=== PATIENT | male | born 1950 | race Caucasian/White ===

== ENCOUNTER → 2022-02-16 | Outpatient (CLI) | payer MEDICARE, BC | END | disposition home or self-care (01) | LOC: LAB SHORT 11:14 | DX: C44.619 Basal cell carcinoma of skin of left upper limb, including shoulder (principal) | CPT/HCPCS: 88305 ==

== ENCOUNTER 2024-05-31 06:31 | Inpatient (IN) | payer MEDICARE, BC ==
[~2024-05-31] VITALS: Ht 182.9 cm; Wt 101.7 kg
[~2024-05-31 06:31] MED LIST: ERLEADA240 MG PO; LEUPROLIDE; TAMS.4ER
[2024-05-31] MEDS ORDERED: Ketorolac Tromethamine 15mg Vial IV ONE (07:30)
[2024-05-31] MEDS ORDERED: Morphine Sulfate 4 MG/1 ML Injection IV ONE ×2 (07:30→12:55)
[2024-05-31 08:31] LABS: Bun/Creatinine Ratio 14.2 (12.0-20.0); Creatinine, Blood 0.99 mg/dL (0.60-1.20); Potassium, Blood 4.1 mmol/L (3.5-5.5)
[2024-05-31 08:38] LABS: BASOPHILS ABSOLUTE AUTO 0.05 K/mm3 (0.00-0.23); BASOPHILS PERCENT AUTO 1 % (0-2); EOSINOPHILS ABSOLUTE AUTO 0.25 K/mm3 (0.00-0.68); EOSINOPHILS PERCENT AUTO 3 % (0-6); Hematocrit 43.6 % (37.0-53.0); Hemoglobin 14.9 g/dL (13.5-17.5); IMMATURE GRAN ABSOLUTE AUTO 0.03 K/mm3 (0.00-0.10); IMMATURE GRAN PERCENT AUTO 0 % (0-1); LYMPHOCYTES ABSOLUTE AUTO 2.11 K/mm3 (0.84-5.20); LYMPHOCYTES PERCENT AUTO 21 % (21-46); MONOCYTES ABSOLUTE AUTO 0.79 K/mm3 (0.16-1.47); MONOCYTES PERCENT AUTO 8 % (4-13); Mean Corpuscular HGB 32.9 pg (26.0-34.0); Mean Corpuscular HGB Conc 34.2 g/dL (31.5-36.5); Mean Corpuscular Volume 96 fL (80-100); Mean Platelet Volume 10.1 fL (9.1-12.4); NEUTROPHILS ABSOLUTE AUTO 6.96 K/mm3 (1.96-9.15); NEUTROPHILS PERCENT AUTO 68 % (41-73); Platelet Count 219 K/mm3 (150-400); RDW Coefficient Variation 12.4 % (11.7-14.2); Red Blood Cell Count 4.53 M/mm3 (4.30-5.90); White Blood Cell Count 10.19 K/mm3 (4.00-11.30)
[2024-05-31] MEDS ORDERED: Vancomycin HCL 2,000 MG in NS 520 ML IV ONE (08:50)
[2024-05-31] MEDS ORDERED: CefTRIAXone Sodium 2,000 MG in NS 100 ML IV ONE (08:50)
[2024-05-31 08:59] LABS: Influenza A, PCR NEGATIVE (NEGATIVE); Influenza B, PCR NEGATIVE (NEGATIVE); Resp Syncytial Virus, PCR NEGATIVE (NEGATIVE); SARS-Cov-2 (COVID-19) PCR, MMC NEGATIVE (NEGATIVE)
[2024-05-31] MEDS ORDERED: Dexamethasone Sod Phos 10 MG/ML 1ML VIAL IV ONE (09:00)
[2024-05-31] MEDS ORDERED: Ampicillin Sod/Sulbactam Sod 3 GM in NS 100 ML IV ONE (09:00)
[2024-05-31] MEDS ORDERED: Oxymetazoline 0.05% Nasal Relief Spray 15mL BTL TOP ONE (09:40)
[2024-05-31] MEDS ORDERED: FLU VACC TS2024-25(6MOS UP)/PF 45 MCG/0.5 ML SYRINGE IM PRN (11:10)
[2024-05-31] MEDS ORDERED: Ondansetron HCl 2 MG / ML 2ML Vial IV PRN (11:10)
[2024-05-31] MEDS ORDERED: Ampicillin Sod/Sulbactam Sod 3 GM in NS 100 ML IV SCH (12:00)
[2024-05-31 13:59] VITALS: BP 134/68
[2024-05-31] MEDS ORDERED: Ketorolac Tromethamine 30mg Vial IV PRN (14:00)
[2024-05-31] MEDS ORDERED: LUPRON DEPOT7.5 M1 (14:09)
[2024-05-31 15:13] VITALS: BP 117/65
--- NOTE | 2024-05-31 18:03 | NUR ---
SHIFT SUMMARY THE PT IS A NEW ADMIT THIS AFTERNOON. HE IS A&OX4, IND IN THE ROOM, AND CAN MAKE HIS NEEDS KNOWN. 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 HE STATED HE FORGOT TO TELL STAFF. HE HAS HAD ONE RUN THIS MORNING THAT DID NOT SUSTAIN . PT ASYMPTOMATIC. HE IS ON RA AND DENIES SOB. HE DOES HAVE PAIN TAKING DEEP BREATHS AND SWALLOWING. THE PT SHOWED VERBAL UNDERSTANDING OF THE NEED TO LET STAFF KNOW IF HE FEELS SOB, OR IF HE FEELS LIKE HIS THROAT IS SWELLING/GETTING TIGHTER. CONT. PULSE OX SET UP. DR. SAXENA WAS CONSULTED AND SAW THE PT WHILE IN THE ER. THE PT;S IS AT BEDSIDE AND UPDATED ON CARE. NO ACUTE EVENTS. SEE NOTES FOR ANY UPDATES.
[2024-05-31] MEDS ORDERED: NS 250 ML IV PRN (20:40)
[2024-05-31 20:45] VITALS: BP 124/73
[2024-06-01 03:46] VITALS: BP 108/65
[2024-06-01 04:27] LABS: BASOPHILS ABSOLUTE AUTO 0.02 K/mm3 (0.00-0.23); BASOPHILS PERCENT AUTO 0 % (0-2); EOSINOPHILS ABSOLUTE AUTO 0.14 K/mm3 (0.00-0.68); EOSINOPHILS PERCENT AUTO 1 % (0-6); Hematocrit 37.6 % (37.0-53.0); Hemoglobin 12.7 g/dL (13.5-17.5); IMMATURE GRAN ABSOLUTE AUTO 0.04 K/mm3 (0.00-0.10); IMMATURE GRAN PERCENT AUTO 0 % (0-1); LYMPHOCYTES ABSOLUTE AUTO 1.52 K/mm3 (0.84-5.20); LYMPHOCYTES PERCENT AUTO 15 % (21-46); MONOCYTES ABSOLUTE AUTO 0.74 K/mm3 (0.16-1.47); MONOCYTES PERCENT AUTO 7 % (4-13); Mean Corpuscular HGB 32.3 pg (26.0-34.0); Mean Corpuscular HGB Conc 33.8 g/dL (31.5-36.5); Mean Corpuscular Volume 96 fL (80-100); Mean Platelet Volume 10.4 fL (9.1-12.4); NEUTROPHILS ABSOLUTE AUTO 7.73 K/mm3 (1.96-9.15); NEUTROPHILS PERCENT AUTO 76 % (41-73); Platelet Count 167 K/mm3 (150-400); RDW Coefficient Variation 12.5 % (11.7-14.2); RDW Standard Deviation 43.6 fL (35.1-46.3); Red Blood Cell Count 3.93 M/mm3 (4.30-5.90); White Blood Cell Count 10.19 K/mm3 (4.00-11.30)
[2024-06-01 04:44] LABS: Bun/Creatinine Ratio 20.4 (12.0-20.0); Calcium, Blood 8.5 mg/dL (8.5-10.1); Creatinine, Blood 1.03 mg/dL (0.60-1.20); Potassium, Blood 3.6 mmol/L (3.5-5.5)
--- NOTE | 2024-06-01 05:56 | NUR ---
SHIFT SUMMARY NOC PT A/O X 4. PLEASANT AND COOPERATIVE WITH CARE. VSS. PAIN FROM ACUTE EPIGLOTITIS BEING MANAGED PER EMAR WITH IV PAIN RX. PT HAS C/O OF CONTIOUS DRAINAGE THAT HAS PERSISTED FOR THE PAST FEW DAYS. PT RECEIVING UNASYN Q6H AND DECADRON DAILY. ON CONTINOUS CARDIAC MONITORING IN 60'S. PT CURRENTLY RESTING WITH BED IN LOWEST POSITION, AND CALL LIGHT WITHIN REACH.
[2024-06-01 07:23] VITALS: BP 115/65
[2024-06-01] MEDS ORDERED: Dexamethasone Sod Phos 10 MG/ML 1ML VIAL IV SCH (09:00)
[2024-06-01] MEDS ORDERED: Tamsulosin HCl 0.4 MG Cap PO SCH (09:00)
[2024-06-01] MEDS ORDERED: Enoxaparin 40 MG/0.4 ML SYR SC SCH (09:00)
[2024-06-01] MEDS ORDERED: APALUTAMIDE 240 MG PO SCH (09:00)
[2024-06-01 11:51] VITALS: BP 133/78
[2024-06-01 15:07] VITALS: BP 114/66
--- NOTE | 2024-06-01 17:05 | NUR ---
SHIFT SUMMARY THE PT REMAINS A&OX4, IND IN THE ROOM, AND CAN MAKE HIS NEEDS KNOWN. 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 ONE EPISODE THIS SHIFT. PT ASYMPTOMATIC. HE REMAINS ON RA AND DENIES SOB. THE PTS PAIN WHEN TAKING DEEP BREATHS HAS IMPROVED.. DR. SAXENA SAW THE PT THIS MORNING AND ORDERED THE PT S LAST DOSE OF DECADRON FOR THIS MORNING. HE WANTS THE PT ON IV ABX FOR 48 HR S, THEN ON ORAL ABX FOR 24 HRS. POSSIBLE DISCHARGE AFTER. SPEECH THERAPY SAW THE PT AND UPGRADED THE PT TO A SOFT BITE SIZED DIET STARTING AT DINNER. THE PT STATES HE IS FEELING MUCH BETTER TODAY THEN YESTERDAY. PAIN MEDICATIONS HAVE NOT BEEN NEED THE PT STATES HIS PAIN HAS BEEN ABSENT. IS AT BEDSIDE AND UPDATED ON CARE. NO ACUTE EVENTS. SEE NOTES FOR ANY UPDATES.
[2024-06-01 19:17] VITALS: BP 126/73
[2024-06-01 23:25] VITALS: BP 112/69
[2024-06-02 03:58] VITALS: BP 106/65
[2024-06-02 04:38] LABS: BASOPHILS ABSOLUTE AUTO 0.03 K/mm3 (0.00-0.23); BASOPHILS PERCENT AUTO 0 % (0-2); EOSINOPHILS ABSOLUTE AUTO 0.13 K/mm3 (0.00-0.68); EOSINOPHILS PERCENT AUTO 2 % (0-6); Hematocrit 35.5 % (37.0-53.0); Hemoglobin 12.1 g/dL (13.5-17.5); IMMATURE GRAN ABSOLUTE AUTO 0.03 K/mm3 (0.00-0.10); IMMATURE GRAN PERCENT AUTO 0 % (0-1); LYMPHOCYTES ABSOLUTE AUTO 1.58 K/mm3 (0.84-5.20); LYMPHOCYTES PERCENT AUTO 20 % (21-46); MONOCYTES ABSOLUTE AUTO 0.68 K/mm3 (0.16-1.47); MONOCYTES PERCENT AUTO 9 % (4-13); Mean Corpuscular HGB 32.9 pg (26.0-34.0); Mean Corpuscular HGB Conc 34.1 g/dL (31.5-36.5); Mean Corpuscular Volume 97 fL (80-100); Mean Platelet Volume 10.1 fL (9.1-12.4); NEUTROPHILS ABSOLUTE AUTO 5.29 K/mm3 (1.96-9.15); NEUTROPHILS PERCENT AUTO 68 % (41-73); Platelet Count 160 K/mm3 (150-400); RDW Coefficient Variation 12.2 % (11.7-14.2); RDW Standard Deviation 43.5 fL (35.1-46.3); Red Blood Cell Count 3.68 M/mm3 (4.30-5.90); White Blood Cell Count 7.74 K/mm3 (4.00-11.30)
[2024-06-02 05:10] LABS: Bun/Creatinine Ratio 21.1 (12.0-20.0); Calcium, Blood 8.6 mg/dL (8.5-10.1); Creatinine, Blood 1.09 mg/dL (0.60-1.20); Free Thyroxine 0.89 ng/dL (0.70-1.60); Potassium, Blood 3.4 mmol/L (3.5-5.5); Thyroid Stimulating Hormone 1.67 uIU/mL (0.360-4.800); Triiodothyronine, Free 1.97 pg/mL (2.18-3.98)
--- NOTE | 2024-06-02 05:19 | NUR ---
SHIFT SUMMARY NOC PT A/O X 4. PLEASANT AND COOPERATIVE WITH CARE. VSS. NO ACUTE CHANGES TO REPORT. PT GIVEN ONE DOSE OF TORADOL FOR R SIDED THROAT PAIN 09/04. CONTINOUS DRAINAGE FROM PRIOR RADIATION THERAPY FRO PROSTAT CX TX. ON CONTINOUS CARDIAC MONITORING IN 60'S. PT PLAN IS 48 HR IV ABX, 24 HR PO ABX, THEN FOLLOW UP WITH PCP OR DR ODESSA GROSS FOR L THYROID LOBE NODULE FOUND ON CT SCAN. PT CURRENTLY RESTING WITH BED IN LOWEST POSITION, AND CALL LIGHT WITHIN REACH.
[2024-06-02 07:40] VITALS: BP 127/70
[2024-06-02] MEDS ORDERED: Psyllium 1 EA Pack PO SCH (09:00)
[2024-06-02] MEDS ORDERED: Potassium Chloride 20 MEQ TabCR PO ONE (09:20)
--- NOTE | 2024-06-02 11:33 | NUR ---
Spiritual Care Visit. Pt. is awake in bed and welcomes my visit. Pt. is pleasant and spouse is at bedside. Failtated a life review and considered matters of radha and belief. pt. and spouse display evidence of a devout and committed radha. Prayed with the family and answered some community history questions. Family verbalized gratitude for the spiritual care visit.
[2024-06-02 12:10] VITALS: BP 116/50
[2024-06-02 15:55] VITALS: BP 116/65
--- NOTE | 2024-06-02 16:52 | NUR ---
SHIFT SUMMARY NO ACUTE CHANGES THIS SHIFT. A&OX4. VSS. PT INDEPENDENT IN ROOM. WALKED AROUND UNIT THIS AFTERNOON. C/O OF THROAT PAIN, MEDICATED W/ TORADOL X1. PT STATES HE NOTICES OF PATTERN OF THROAT IRRITAION POST FOOD CONSUMPTION, BUT DOESNT LAST LONG. SPEECH IN ROOM TO ASSESS, SIGNED OFF PT'S CASE. IN ROOM THIS AM. REQUESTING DR LEON TO GET REFUND FROM MISSED AIRLINE FLIGHT DUE TO HOSPITAL STAY. MD EAGLE IN ROOM, WROTE PT DR LEON, GIVEN TO . ABX INFUSED PER EMAR. CALL LIGHT IN REACH.
[2024-06-02 20:14] VITALS: BP 130/73
[2024-06-02] MEDS ORDERED: Lactobacil 2-S.Thermo-Bifido 1 1 Cap PO SCH (21:00)
[2024-06-02 23:52] VITALS: BP 118/69
--- NOTE | 2024-06-03 02:17 | NUR ---
SHIFT SUMMARY ASSUMED CARE OF PT AT 1900. PT A&O4, COOPERATIVE IN CARE AND ABLE TO EXPRESS NEEDS APPROPRIATELY. PT DENIES CP AND SOB. HR DROPPED LOW 43, NONSUSTAINING. ALL OTHER VSS AND PT REMAINED ON RA. PT REPORTED PAIN AT THE BEGINING OF SHIFT AND PRN ANALGESICS GIVEN, NO OTHER PAIN REPORTED SINCE. PT ABLE TO AMBULATE TO THE RR INDEPENDENTLY. BED IN LOWEST POSITION AND CALL LIGHT WITHIN REACH.
[2024-06-03 04:08] LABS: BASOPHILS ABSOLUTE AUTO 0.04 K/mm3 (0.00-0.23); BASOPHILS PERCENT AUTO 1 % (0-2); EOSINOPHILS ABSOLUTE AUTO 0.24 K/mm3 (0.00-0.68); EOSINOPHILS PERCENT AUTO 4 % (0-6); Hematocrit 34.7 % (37.0-53.0); Hemoglobin 11.8 g/dL (13.5-17.5); IMMATURE GRAN ABSOLUTE AUTO 0.02 K/mm3 (0.00-0.10); IMMATURE GRAN PERCENT AUTO 0 % (0-1); LYMPHOCYTES ABSOLUTE AUTO 1.48 K/mm3 (0.84-5.20); LYMPHOCYTES PERCENT AUTO 27 % (21-46); MONOCYTES ABSOLUTE AUTO 0.53 K/mm3 (0.16-1.47); MONOCYTES PERCENT AUTO 10 % (4-13); Mean Corpuscular HGB 32.7 pg (26.0-34.0); Mean Corpuscular Volume 96 fL (80-100); Mean Platelet Volume 10.5 fL (9.1-12.4); NEUTROPHILS PERCENT AUTO 57 % (41-73); Platelet Count 167 K/mm3 (150-400); RDW Coefficient Variation 12.1 % (11.7-14.2); RDW Standard Deviation 42.4 fL (35.1-46.3); Red Blood Cell Count 3.61 M/mm3 (4.30-5.90); White Blood Cell Count 5.41 K/mm3 (4.00-11.30)
[2024-06-03 04:29] LABS: Bun/Creatinine Ratio 18.8 (12.0-20.0); Calcium, Blood 8.2 mg/dL (8.5-10.1); Creatinine, Blood 1.12 mg/dL (0.60-1.20); Potassium, Blood 3.8 mmol/L (3.5-5.5)
[2024-06-03 05:05] VITALS: BP 118/73
[2024-06-03 08:05] VITALS: BP 142/89
--- NOTE | 2024-06-03 08:58 | NUR ---
UPDATE PT AWAKE AND ALERT SITTIN UP ON EDGE OF BED THIS AM EATING BREAKFAST. PT DENIES ANY THROAT PAIN THIS AM. PT REPORTS SWALLOWING FEELS "BACK TO NORMAL". O2 SATS >90% ON RA. WILL CONTINUE PLAN OF CARE
[2024-06-03] MEDS ORDERED: VISBIOME 112.51 EACH PO (11:19)
[2024-06-03] MEDS ORDERED: AMOCLA875 PO (11:19)
--- NOTE | 2024-06-03 11:45 | NUR ---
UPDATE DISCHARGE INSTRUCTIONS PROVIDED TO PT. PT EDUCATED ON FOLLOW-UP AND NEW MEDICATIONS. ALL QUESTIONS ANSWERED. PT DECLINED WC RIDE OUT AND WALKED.
[2024-06-03] MEDS ORDERED: Amoxicillin/Clavulanate K 875 MG Tab PO SCH (21:00)
== END 2024-06-03 12:00 | disposition home or self-care (01) | DRG 153 ==
LOC: ER 06:31 → PCU 11:06
PROVIDERS: Emergency Medicine; ADMIT Family Medicine
PROC: 0CJS8ZZ Inspection of Larynx, Via Natural or Artificial Opening Endoscopic (ICD-10-PCS; principal; 2024-05-31)
DX: J05.10 Acute epiglottitis without obstruction (principal); J02.9 Acute pharyngitis, unspecified; E04.1 Nontoxic single thyroid nodule; E87.6 Hypokalemia; D64.9 Anemia, unspecified; N40.0 Benign prostatic hyperplasia without lower urinary tract symptoms; Z85.46 Personal history of malignant neoplasm of prostate; Z90.79 Acquired absence of other genital organ(s); Z90.49 Acquired absence of other specified parts of digestive tract; Z98.890 Other specified postprocedural states; Z79.899 Other long term (current) drug therapy; Z87.891 Personal history of nicotine dependence
CPT/HCPCS: 0241U; 36415; 70491; 80048; 83605; 84439; 84443; 84481; 85025; 87040; 87081; 87430; 92526; 92610; 94762; 96365-59; 96366; 96375; 99284-25; A9270; J0295; J1100; J1885; J2270; J3370; J7040; J7050; Q9967